=== PATIENT | male | born 1935 | race Caucasian/White ===

== ENCOUNTER 2020-04-24 06:55 | Day surgery (SDC) | payer MEDICARE, BC ==
[~2020-04-24 06:55] MED LIST: Lactated Ringers 1,000 ML IV SCH; Lidocaine 1%/Sod Bicarbonate in NS 8.4% 1 ML Syringe IDERM PRN; Sodium Chloride 0.9% 10 ML Syringe FLUSH PRN
[2020-04-24] MEDS ORDERED: Propofol 200 MG/20 ML SDV ONE ×2 (07:01→08:09)
[2020-04-24] MEDS ORDERED: Lidocaine 1% 4 ML ONE (07:02)
--- NOTE | 2020-04-24 07:27 | PCM.PREANE ---
Preanesthetic Assessment - Procedure Proposed Procedure: dx egd - Anesthesia/Transfusion/Family Hx Anesthesia History: Prior Anesthesia Without Reaction Family History of Anesthesia Reaction: No Transfusion History: Prior Transfusion Without Reaction - Review of Systems General: No Symptoms Pulmonary: No Symptoms Cardiovascular: No Symptoms Gastrointestinal: Difficulty Swallowing Neurological: No Symptoms Other: Reports: Diabetes - Physical Assessment NPO Status Date: 04/23/20 NPO Status Time: 21:00 Vital Signs: 154/84 64 97% 20 Height: 5 ft 6 in Weight: 81.6 kg ASA Class: 2 Mental Status: Alert & Oriented x3 Airway Class: Mallampati = 1 Dentition: Reports: Missing Tooth/Teeth Thyro-Mental Finger Breadths: 3 Mouth Opening Finger Breadths: 3 ROM/Head Extension: Full Lungs: Clear to Auscultation, Normal Respiratory Effort Cardiovascular: Regular Rate, Regular Rhythm - Allergies Allergies/Adverse Reactions: Allergies Allergy/AdvReac Type Severity Reaction Status Date / Time hydromorphone HCl Allergy Respiratory Verified 04/24/20 07:24 [From Dilaudid] Depression venom-honey bee Allergy Anaphylactic Verified 04/24/20 07:24 [bee venom (honey bee)] Shock - Blood Blood Available: No - Acknowledgements Anesthesia Type Planned: MAC Pt an Appropriate Candidate for the Planned Anesthesia: Yes Alternatives and Risks of Anesthesia Discussed w Pt/Guardian: Yes Pt/Guardian Understands and Agrees with Anesthesia Plan: Yes PreAnesthesia Questionnaire HEENT History: Reports: Cataract Cardiovascular History: Reports: High Cholesterol, Hypertension Respiratory History: Reports: Sleep Apnea Gastrointestinal History: Reports: GERD Genitourinary History: Reports: Retention, Urinary Musculoskeletal History: Reports: Arthritis, Gout Endocrine/Metabolic History: Reports: Diabetes, Type II, Hypothyroidism, Vitamin D Deficiency - Past Surgical History Cardiovascular Surgical History: Reports: Coronary Artery Bypass Other Female Surgeries/Procedures: DECREASED TESTOSTERONE Male Surgical History: Reports: Vasectomy, Other (See Below) Musculoskeletal Surgical History: Reports: Knee Replacement, Other (See Below) (back surgery) - SUBSTANCE USE Tobacco Use Status *Q: Former Tobacco User Tobacco Use Within Last Twelve Months: No Second Hand Smoke Exposure: No Days Per Week of Alcohol Use: 1 Number of Drinks Per Day: 1 Total Drinks Per Week: 1 Recreational Drug Use History: No - HOME MEDS Home Medications: Home Meds Acetaminophen [Tylenol] 325 mg PO BID PRN 12/03/14 [History] Allopurinol [Zyloprim] 50 mg PO DAILY 12/03/14 [History] Aspirin [Adult Low Dose Aspirin EC] 81 mg PO DAILY 12/03/14 [History] Cholecalciferol (Vitamin D3) [D-2000] 2,000 unit PO DAILY 12/03/14 [History] Nitroglycerin [Nitrostat] 0.4 mg SL ASDIRECTED PRN 12/03/14 [History] Tamsulosin [Tamsulosin 24 Hr] 0.4 mg PO DAILY 12/03/14 [History] Testosterone 50 gm TD DAILY 12/03/14 [History] Travoprost [Travatan Z 0.004% Ophth Soln] 1 drop EYEBOTH DAILY 12/03/14 [History] Ubidecarenone [Co Q-10] 200 mg PO DAILY 12/03/14 [History] atorvaSTATin [Lipitor] 20 mg PO BEDTIME 12/03/14 [History] Colchicine 0.6 mg PO DAILY 04/23/20 [History] Famotidine [Pepcid] 20 mg PO BEDTIME 04/23/20 [History] Irbesartan 300 mg PO DAILY 04/23/20 [History] L.acidoph,Paracasei, B.lactis [Probiotic] 1 cap PO DAILY 04/23/20 [History] Magnesium Citrate 1 tab PO DAILY 04/23/20 [History] Naltrexone 50 mg PO DAILY 04/23/20 [History] Baker-3/DHA/Epa/Fish Oil [Baker-3 Fish Oil 1,000 MG Sfgl] 1 tab PO DAILY 04/23/20 [History] hydroCHLOROthiazide [Hydrochlorothiazide] 6.25 mg PO DAILY 04/23/20 [History] metFORMIN HCl [Metformin HCl] 1,000 mg PO BID 04/23/20 [History] traMADol [Ultram] 50 mg PO Q6HR PRN 04/23/20 [History] - CURRENT (IN HOUSE) MEDS Current Meds: Current Medications Lactated Ringer's (Ringers, Lactated) 1,000 mls @ 125 mls/hr IV ASDIRECTED ANTHONY Stop: 04/24/20 23:00 Lidocaine/Sodium Bicarbonate (Buffered Lidocaine 1% In Ns 8.4%) 0.25 ml IDERM ONETIME PRN PRN Reason: Prior to IV Start Stop: 04/24/20 18:00 Sodium Chloride (Saline Flush) 10 ml FLUSH ASDIRECTED PRN PRN Reason: Keep Vein Open Stop: 04/24/20 18:00 Discontinued Medications Lidocaine HCl (Xylocaine-Mpf 1%) Confirm Administered Dose 4 mls @ as directed .ROUTE .STK-MED ONE Stop: 04/24/20 07:03 Propofol (Diprivan 20 Ml) Confirm Administered Dose 200 mg .ROUTE .STK-MED ONE Stop: 04/24/20 07:02
--- NOTE | 2020-04-24 08:27 | PCM48HPAN ---
Post Anesthesia Note - EVALUATION WITHIN 48HRS OF ANESTHETIC Vital Signs in Normal Range: Yes Patient Participated in Evaluation: Yes Respiratory Function Stable: Yes Airway Patent: Yes Cardiovascular Function Stable: Yes Hydration Status Stable: Yes Pain Control Satisfactory: Yes Nausea and Vomiting Control Satisfactory: Yes Mental Status Recovered: Yes Vital Signs: Last Vital Signs Temp 97.1 F 04/24/20 07:27 Pulse 64 04/24/20 07:27 Resp 16 04/24/20 07:27 BP 154/84 H 04/24/20 07:27 Pulse Ox 97 04/24/20 07:27 821 98/61 95% 63 11 98.0
--- NOTE | 2020-04-24 08:55 | PCM.PRNOTE ---
- Free Text/Narrative Note: Date: 04/24/2020 Procedure: diagnostic esophagogastroduodenoscopy Indication: dysphagia Endoscopist: Tyrone Lux MD Findings: gross inflammatory change of distal esophagus with moderate size hiatal hernia. Detailed Report: The patient was taken to the endoscopy suite and placed in left lateral decubitus position. A bite block was placed, timeout performed, and monitored anesthesia care initiated. The endoscope was inserted into the mouth and advanced to the duodenum. The duodenum appeared normal. The stomach appeared normal except for a moderate hiatal hernia. A biopsy of the antrum was obtained with cold forceps. The scope was withdrawn to the Z-line. There was gross inflammation of the distal esophagus with ulceration. More proximal, there were abnormal patchy, slightly raised discrete lesions with same color as squamous mucosa. Biopsies of the distal esophagus and mid esophagus including the ab normal appearing tissue were obtained. Air was suctioned and the scope withdrawn. The patient tolerated the procedure well.
[2020-04-24 09:42] VITALS: BP 113/70; PULSE 80
== END 2020-04-24 09:15 | disposition home or self-care (01) ==
LOC: JD.SDS 06:55
PROVIDERS: ATTEND Surgery
DX: K22.10 Ulcer of esophagus without bleeding (principal); K44.9 Diaphragmatic hernia without obstruction or gangrene; K21.9 Gastro-esophageal reflux disease without esophagitis; I10 Essential (primary) hypertension; M10.9 Gout, unspecified; E78.00 Pure hypercholesterolemia, unspecified; E03.9 Hypothyroidism, unspecified; E11.9 Type 2 diabetes mellitus without complications; E55.9 Vitamin D deficiency, unspecified; Z87.891 Personal history of nicotine dependence; Z95.1 Presence of aortocoronary bypass graft; Z79.82 Long term (current) use of aspirin; Z88.5 Allergy status to narcotic agent; Z79.899 Other long term (current) drug therapy; Z79.84 Long term (current) use of oral hypoglycemic drugs; Z98.890 Other specified postprocedural states; Z91.030 Bee allergy status
CPT/HCPCS: 43239; 82962; J2704; J7120; 00731; 88305; 88312